=== PATIENT | male | born 1975 | race Caucasian/White ===

== ENCOUNTER 2021-06-10 15:14 | Inpatient (IN) | payer MEDICAID, OTHER ==
[~2021-06-10] VITALS: Ht 172.7 cm; Wt 110.0 kg
[2021-06-10] MEDS ORDERED: FUROSEMIDE 40 MG/4 ML VIAL IV ONE (15:45)
[2021-06-10 16:27] LABS: Basophils # (auto) 0.1 10 ^3/uL (0-0.2); Basophils % (auto) 1.1 % (0.0-2.0); Eosinophils # (auto) 0.1 10 ^3/uL (0-0.8); Eosinophils % (auto) 1.2 % (0.0-7.0); Hematocrit 48.7 % (41.0-53.0); Hemoglobin 16.4 g/dL (13.5-17.5); Lymphocytes # (auto) 1.6 10 ^3/uL (0.4-5.4); Lymphocytes % (auto) 12.9 % (10.0-50.0); Mean Corpuscular Hemoglobin 28.9 pg (28.0-32.0); Mean Corpuscular Hgb Conc. 33.8 g/dL (32.0-36.0); Mean Corpuscular Volume 85.5 fL (80.0-100.0); Monocytes # (auto) 0.6 10 ^3/uL (0-1.3); Monocytes % (auto) 4.6 % (0.0-12.0); Neutrophils # (auto) 9.7 10 ^3/uL (1.6-8.6); Neutrophils % (auto) 80.2 % (37.0-80.0); Nucleated Red Blood Cells % 0.4 %; Red Blood Cells 5.69 10^6/uL (4.5-5.90); Red Cell Distribution Width 13.4 % (11.8-14.3); White Blood Cell 12.1 10^3/uL (4.4-10.8)
[2021-06-10 16:43] LABS: Albumin 3.6 g/dL (3.4-5.0); BUN/Creatinine Ratio 9.1; Calcium 8.8 mg/dL (8.5-10.1); Potassium 3.9 mmol/L (3.5-5.1)
[2021-06-10 16:46] LABS: Total Protein 7.4 g/dL (6.4-8.2)
[2021-06-10] MEDS ORDERED: ACETAMINOPHEN 325 MG TAB PO PRN (21:45)
[2021-06-10] MEDS ORDERED: ONDANSETRON HCL 4 MG/2 ML VIAL IV PRN (21:45)
[2021-06-10] MEDS ORDERED: NITROGLYCERIN 0.4 MG SL TAB SL PRN (21:45)
[2021-06-10] MEDS ORDERED: MORPHINE SULFATE INJECTION 2 MG/ML SYRG IV PRN (21:45)
[2021-06-10] MEDS: METOPROLOL TARTRATE 25 MG TAB PO SCH (22:00)
[2021-06-10] MEDS: ALBUTEROL SULF 2.5 MG/0.5ML(0.5%) NEB SOLN NEB PRN (22:11)
[2021-06-10 22:32] LABS: Urine Bacteria FEW /hpf (None Seen); Urine Blood Negative /uL (Negative); Urine Mucus FEW (None Seen); Urine Specific Gravity 1.012 (1.001-1.035); Urine WBC <1 /hpf (0 - 3)
[2021-06-10] MEDS: ATORVASTATIN 20 MG TAB PO SCH (22:39)
[2021-06-10 22:40] LABS: Alcohol, Urine < 3.0 mg/dL (0-10); Amphetamine Screen, Urine NEGATIVE (NEGATIVE); Barbiturate Scree,Urine NEGATIVE (NEGATIVE); Benzodiazephine Screen, Urine NEGATIVE (NEGATIVE); Cannabinoid Screen, Urine NEGATIVE (NEGATIVE); Cocaine Screen, Urine NEGATIVE (NEGATIVE); Opiate Scree,Urine NEGATIVE (NEGATIVE); Phencyclidine Screen, Urine NEGATIVE (NEGATIVE)
[2021-06-10 23:05] VITALS: BP 133/68
[2021-06-11] VITALS (7 sets, daily range): BP systolic 123–153; BP diastolic 84–113
[2021-06-11 04:55] LABS: Basophils # (auto) 0.1 10 ^3/uL (0-0.2); Basophils % (auto) 0.8 % (0.0-2.0); Eosinophils # (auto) 0 10 ^3/uL (0-0.8); Eosinophils % (auto) 0.2 % (0.0-7.0); Hematocrit 45.1 % (41.0-53.0); Hemoglobin 15.2 g/dL (13.5-17.5); Lymphocytes # (auto) 1.4 10 ^3/uL (0.4-5.4); Lymphocytes % (auto) 8.9 % (10.0-50.0); Mean Corpuscular Hemoglobin 29.1 pg (28.0-32.0); Mean Corpuscular Hgb Conc. 33.8 g/dL (32.0-36.0); Mean Corpuscular Volume 86.2 fL (80.0-100.0); Monocytes # (auto) 1.1 10 ^3/uL (0-1.3); Monocytes % (auto) 7.3 % (0.0-12.0); Neutrophils % (auto) 82.8 % (37.0-80.0); Nucleated Red Blood Cells % 0.1 %; Red Blood Cells 5.24 10^6/uL (4.5-5.90); Red Cell Distribution Width 13.4 % (11.8-14.3); White Blood Cell 15.7 10^3/uL (4.4-10.8)
[2021-06-11] MEDS ORDERED: FUROSEMIDE 20 MG/2 ML VIAL IV SCH (06:00)
[2021-06-11] MEDS: ALBUTEROL SULF 2.5 MG/0.5ML(0.5%) NEB SOLN NEB PRN ×2 (08:41→18:33)
[2021-06-11] MEDS: PANTOPRAZOLE 40 MG TAB PO SCH (09:42)
[2021-06-11] MEDS: METOPROLOL TARTRATE 25 MG TAB PO SCH ×2 (09:42→22:59)
[2021-06-11] MEDS: ENOXAPARIN SOD 40 MG/0.4 ML SYRINGE SC SCH (09:42)
[2021-06-11] MEDS: ASPirin 81 mg TAB PO SCH (09:42)
[2021-06-11] MEDS ORDERED: FUROSEMIDE 40 MG/4 ML VIAL IV ONE (12:45)
[2021-06-11] MEDS ORDERED: ACETAMINOPHEN 325 MG TAB PO PRN (12:45)
[2021-06-11] MEDS: FUROSEMIDE 40 MG/4 ML VIAL IV SCH (18:24)
[2021-06-11] MEDS: ATORVASTATIN 20 MG TAB PO SCH (22:59)
[2021-06-12 05:00] VITALS: BP 134/92
[2021-06-12] MEDS: FUROSEMIDE 40 MG/4 ML VIAL IV SCH ×2 (07:21→18:22)
[2021-06-12 08:07] LABS: Basophils # (auto) 0.1 10 ^3/uL (0-0.2); Basophils % (auto) 1.2 % (0.0-2.0); Eosinophils # (auto) 0.2 10 ^3/uL (0-0.8); Hematocrit 45.9 % (41.0-53.0); Hemoglobin 15.7 g/dL (13.5-17.5); Lymphocytes % (auto) 17.1 % (10.0-50.0); Mean Corpuscular Hemoglobin 29.5 pg (28.0-32.0); Mean Corpuscular Hgb Conc. 34.3 g/dL (32.0-36.0); Mean Corpuscular Volume 86.2 fL (80.0-100.0); Monocytes # (auto) 0.8 10 ^3/uL (0-1.3); Monocytes % (auto) 7.2 % (0.0-12.0); Neutrophils # (auto) 8.5 10 ^3/uL (1.6-8.6); Neutrophils % (auto) 72.5 % (37.0-80.0); Red Blood Cells 5.33 10^6/uL (4.5-5.90); Red Cell Distribution Width 13.7 % (11.8-14.3); White Blood Cell 11.7 10^3/uL (4.4-10.8)
[2021-06-12 08:42] VITALS: BP 164/90
[2021-06-12] MEDS: levoFLOXacin 500MG 100 ML IV SCH (09:15)
[2021-06-12] MEDS: ENOXAPARIN SOD 40 MG/0.4 ML SYRINGE SC SCH (09:16)
[2021-06-12] MEDS: PANTOPRAZOLE 40 MG TAB PO SCH (09:17)
[2021-06-12] MEDS: METOPROLOL TARTRATE 25 MG TAB PO SCH ×2 (09:17→21:43)
[2021-06-12] MEDS: ASPirin 81 mg TAB PO SCH (09:17)
[2021-06-12] MEDS ORDERED: cloNIDine HCL 0.1 MG TAB PO PRN (11:30)
[2021-06-12 12:19] LABS: Alanine Aminotransferase 84 U/L (16-61); Alkaline Phosphatase 73 U/L (45-117); Anion Gap 7 (5-15); Aspartate Aminotransferase 37 U/L (15-37); BUN/Creatinine Ratio 13.3; Bilirubin, Total 1.9 mg/dL (0.2-1.0); Blood Urea Nitrogen 18 mg/dL (7-18); Calcium 8.8 mg/dL (8.5-10.1); Carbon Dioxide 32 mmol/L (21-32); Chloride 98 mmol/L (98-107); GFR African American 74 mL/min; GFR Non-African American 61 mL/min; Glucose 153 mg/dL (74-106); Potassium 3.7 mmol/L (3.5-5.1); Sodium 137 mmol/L (136-145)
[2021-06-12 12:20] LABS: Albumin 3.4 g/dL (3.4-5.0); Total Protein 7.5 g/dL (6.4-8.2)
[2021-06-12 12:32] VITALS: BP 125/85
[2021-06-12 16:49] VITALS: BP 118/79
[2021-06-12] MEDS: ATORVASTATIN 20 MG TAB PO SCH (21:43)
[2021-06-12 22:00] VITALS: BP 140/94
[2021-06-13] MEDS: HYDROcodone-ACET 5/325MG TAB PO PRN (04:29)
[2021-06-13 05:00] VITALS: BP 125/84
[2021-06-13] MEDS: FUROSEMIDE 40 MG/4 ML VIAL IV SCH ×2 (05:17→17:59)
[2021-06-13 09:00] VITALS: BP 138/96
[2021-06-13] MEDS: levoFLOXacin 500MG 100 ML IV SCH (09:50)
[2021-06-13] MEDS: METOPROLOL TARTRATE 25 MG TAB PO SCH ×2 (09:50→21:13)
[2021-06-13] MEDS: ASPirin 81 mg TAB PO SCH (09:50)
[2021-06-13] MEDS: PANTOPRAZOLE 40 MG TAB PO SCH (09:51)
[2021-06-13] MEDS: ENOXAPARIN SOD 40 MG/0.4 ML SYRINGE SC SCH (09:51)
[2021-06-13 13:00] VITALS: BP 141/89
[2021-06-13 17:00] VITALS: BP 138/75
[2021-06-13 18:48] VITALS: BP 143/99
[2021-06-13] MEDS: ATORVASTATIN 20 MG TAB PO SCH (21:13)
[2021-06-13 22:00] VITALS: BP 130/90
[2021-06-14] VITALS (7 sets, daily range): BP systolic 107–134; BP diastolic 64–94
[2021-06-14] MEDS: FUROSEMIDE 40 MG/4 ML VIAL IV SCH ×2 (05:47→17:44)
[2021-06-14] MEDS: ASPirin 81 mg TAB PO SCH (09:52)
[2021-06-14] MEDS: PANTOPRAZOLE 40 MG TAB PO SCH (09:52)
[2021-06-14] MEDS: ENOXAPARIN SOD 40 MG/0.4 ML SYRINGE SC SCH (09:53)
[2021-06-14] MEDS: levoFLOXacin 500MG 100 ML IV SCH (09:53)
[2021-06-14] MEDS: METOPROLOL TARTRATE 25 MG TAB PO SCH ×2 (09:54→21:56)
[2021-06-14] MEDS: HYDROcodone-ACET 5/325MG TAB PO PRN (10:06)
[2021-06-14 11:22] LABS: Cholesterol 159 mg/dL (< 200)
[2021-06-14 11:26] LABS: HDL Cholesterol 34 mg/dL (40-59); LDL Cholesterol 116 mg/dL (< 100); Triglycerides 150 mg/dL (< 150)
[2021-06-14] MEDS ORDERED: REGADENOSON 0.4 MG/5 ML SYRG IV ONE ×2 (14:11→15:15)
[2021-06-14] MEDS: ATORVASTATIN 20 MG TAB PO SCH (21:57)
[2021-06-15 05:00] VITALS: BP 111/62
[2021-06-15] MEDS: FUROSEMIDE 40 MG/4 ML VIAL IV SCH ×2 (06:17→18:01)
[2021-06-15 08:00] VITALS: BP 101/62
[2021-06-15] MEDS: levoFLOXacin 500MG 100 ML IV SCH (10:11)
[2021-06-15] MEDS: METOPROLOL TARTRATE 25 MG TAB PO SCH ×2 (10:12→21:22)
[2021-06-15] MEDS: ENOXAPARIN SOD 40 MG/0.4 ML SYRINGE SC SCH (10:12)
[2021-06-15] MEDS: ASPirin 81 mg TAB PO SCH (10:12)
[2021-06-15 12:00] VITALS: BP 119/81
[2021-06-15 17:00] VITALS: BP 117/93
[2021-06-15] MEDS: ATORVASTATIN 20 MG TAB PO SCH (21:21)
[2021-06-15] MEDS: TEMAZEPAM 15 MG CAP PO PRN (21:22)
[2021-06-15 22:26] VITALS: BP 134/93
[2021-06-16] VITALS (9 sets, daily range): BP systolic 129–159; BP diastolic 73–111
[2021-06-16 04:37] LABS: Basophils # (auto) 0.1 10 ^3/uL (0-0.2); Basophils % (auto) 0.7 % (0.0-2.0); Eosinophils # (auto) 0.2 10 ^3/uL (0-0.8); Eosinophils % (auto) 1.7 % (0.0-7.0); Hematocrit 47.6 % (41.0-53.0); Hemoglobin 16.5 g/dL (13.5-17.5); Lymphocytes # (auto) 2.5 10 ^3/uL (0.4-5.4); Lymphocytes % (auto) 23.7 % (10.0-50.0); Mean Corpuscular Hemoglobin 29.7 pg (28.0-32.0); Mean Corpuscular Hgb Conc. 34.5 g/dL (32.0-36.0); Mean Corpuscular Volume 86.1 fL (80.0-100.0); Monocytes # (auto) 1.1 10 ^3/uL (0-1.3); Monocytes % (auto) 10.3 % (0.0-12.0); Neutrophils # (auto) 6.8 10 ^3/uL (1.6-8.6); Neutrophils % (auto) 63.6 % (37.0-80.0); Nucleated Red Blood Cells % 0.4 %; Red Blood Cells 5.53 10^6/uL (4.5-5.90); Red Cell Distribution Width 13.2 % (11.8-14.3); White Blood Cell 10.7 10^3/uL (4.4-10.8)
[2021-06-16 04:52] LABS: BUN/Creatinine Ratio 14.8; Calcium 8.8 mg/dL (8.5-10.1); Potassium 3.7 mmol/L (3.5-5.1)
[2021-06-16 04:57] LABS: INR 1.05 (0.9-1.15); Partial Thromboplastin Time 28.6 sec (23.6-33.0)
[2021-06-16] MEDS: FUROSEMIDE 40 MG/4 ML VIAL IV SCH ×2 (06:32→17:23)
[2021-06-16] MEDS: ASPirin 81 mg TAB PO SCH (09:37)
[2021-06-16] MEDS: METOPROLOL TARTRATE 25 MG TAB PO SCH ×2 (09:37→22:45)
[2021-06-16] MEDS: ENOXAPARIN SOD 40 MG/0.4 ML SYRINGE SC SCH (09:37)
[2021-06-16] MEDS: levoFLOXacin 500MG 100 ML IV SCH (09:38)
[2021-06-16] MEDS ORDERED: IODIXANOL 320MG/ML 100ML BTL IV ONE ×2 (11:55→13:17)
[2021-06-16] MEDS ORDERED: LIDOCAINE 2%HCL (LOCAL ANESTH.) INJ 20ML MDV ONE (11:55)
[2021-06-16] MEDS ORDERED: MIDAZOLAM HCL 2MG/2ML 2ml VIAL (1mg/ml) ONE (13:13)
[2021-06-16] MEDS ORDERED: HEPARIN SODIUM (PORCINE) 5000 UNITS/ML 1ML VIAL ONE (13:13)
[2021-06-16] MEDS ORDERED: VERAPAMIL 2.5MG/ML INJ 2ML VIAL IV ONE (13:13)
[2021-06-16] MEDS ORDERED: fentaNYL CITRATE 100 MCG/2 ML VL ONE (13:13)
[2021-06-16] MEDS ORDERED: ANGIOMAX 250 MG VIAL IV ONE (13:13)
[2021-06-16] MEDS ORDERED: SODIUM CHL 0.9% 0 ML ONE (13:14)
[2021-06-16] MEDS: HYDROcodone-ACET 5/325MG TAB PO PRN ×2 (17:23→22:52)
[2021-06-16] MEDS ORDERED: LORazepam 2MG/ML-1ML VIAL IV PRN (22:00)
[2021-06-16] MEDS: TEMAZEPAM 15 MG CAP PO PRN (22:45)
[2021-06-16] MEDS: ATORVASTATIN 20 MG TAB PO SCH (22:45)
[2021-06-17 05:00] VITALS: BP 114/87
[2021-06-17] MEDS: FUROSEMIDE 40 MG/4 ML VIAL IV SCH ×2 (05:20→17:37)
[2021-06-17] MEDS: HYDROcodone-ACET 5/325MG TAB PO PRN (08:37)
[2021-06-17] MEDS: ASPirin 81 mg TAB PO SCH (08:52)
[2021-06-17] MEDS: levoFLOXacin 500MG 100 ML IV SCH (08:52)
[2021-06-17] MEDS: ENOXAPARIN SOD 40 MG/0.4 ML SYRINGE SC SCH (08:53)
[2021-06-17 09:00] VITALS: BP 152/106
[2021-06-17] MEDS: METOPROLOL TARTRATE 25 MG TAB PO SCH ×2 (10:00→22:17)
[2021-06-17 13:00] VITALS: BP 123/82
[2021-06-17 17:00] VITALS: BP 131/83
[2021-06-17] MEDS: ATORVASTATIN 20 MG TAB PO SCH ×2 (21:30→22:16)
[2021-06-17 21:58] VITALS: BP 103/81
[2021-06-18 05:00] VITALS: BP 118/68
[2021-06-18] MEDS: FUROSEMIDE 40 MG/4 ML VIAL IV SCH ×2 (05:43→17:20)
[2021-06-18] MEDS: ASPirin 81 mg TAB PO SCH (08:32)
[2021-06-18] MEDS: levoFLOXacin 500MG 100 ML IV SCH (08:32)
[2021-06-18] MEDS: ENOXAPARIN SOD 40 MG/0.4 ML SYRINGE SC SCH (08:32)
[2021-06-18] MEDS: METOPROLOL TARTRATE 25 MG TAB PO SCH ×2 (08:35→21:27)
[2021-06-18 08:53] VITALS: BP 144/95
[2021-06-18] MEDS ORDERED: FURO1TAB31 PO (09:11)
[2021-06-18] MEDS ORDERED: METO25TA5 PO (09:11)
[2021-06-18] MEDS ORDERED: CLOP75TA28 PO (09:11)
[2021-06-18] MEDS ORDERED: POTA10TA51 PO (09:11)
[2021-06-18] MEDS ORDERED: ASPI81CH49 PO (09:11)
[2021-06-18] MEDS ORDERED: ATO40T PO (09:11)
[2021-06-18 10:05] VITALS: BP 144/95
[2021-06-18 13:00] VITALS: BP 149/102
[2021-06-18 16:53] VITALS: BP 135/88
[2021-06-18] MEDS: ATORVASTATIN 20 MG TAB PO SCH (21:26)
[2021-06-18 23:15] VITALS: BP 130/88
[2021-06-19 05:37] VITALS: BP 120/83
[2021-06-19] MEDS: FUROSEMIDE 40 MG/4 ML VIAL IV SCH ×2 (05:54→17:37)
[2021-06-19 09:00] VITALS: BP 137/92
[2021-06-19] MEDS: ASPirin 81 mg TAB PO SCH (09:37)
[2021-06-19] MEDS: METOPROLOL TARTRATE 25 MG TAB PO SCH ×2 (09:38→21:28)
[2021-06-19] MEDS: ENOXAPARIN SOD 40 MG/0.4 ML SYRINGE SC SCH (09:38)
[2021-06-19] MEDS: levoFLOXacin 500MG 100 ML IV SCH (09:38)
[2021-06-19 13:00] VITALS: BP 125/84
[2021-06-19 16:59] VITALS: BP 128/88
[2021-06-19] MEDS: ATORVASTATIN 20 MG TAB PO SCH (21:28)
[2021-06-19 22:00] VITALS: BP 117/72
[2021-06-20 00:37] VITALS: BP 117/72
[2021-06-20 05:00] VITALS: BP 110/81
[2021-06-20] MEDS: FUROSEMIDE 40 MG/4 ML VIAL IV SCH ×2 (07:00→18:24)
[2021-06-20] MEDS: HYDROcodone-ACET 5/325MG TAB PO PRN (08:02)
[2021-06-20 09:00] VITALS: BP 139/95
[2021-06-20] MEDS: levoFLOXacin 500MG 100 ML IV SCH (09:10)
[2021-06-20] MEDS: METOPROLOL TARTRATE 25 MG TAB PO SCH ×2 (09:10→22:22)
[2021-06-20] MEDS: ASPirin 81 mg TAB PO SCH ×2 (09:10→14:00)
[2021-06-20] MEDS: ENOXAPARIN SOD 40 MG/0.4 ML SYRINGE SC SCH (09:11)
[2021-06-20 13:00] VITALS: BP 121/85
[2021-06-20 17:00] VITALS: BP 136/99
[2021-06-20 22:00] VITALS: BP 135/88
[2021-06-20] MEDS: ATORVASTATIN 20 MG TAB PO SCH (22:21)
[2021-06-21 05:00] VITALS: BP 131/96
[2021-06-21] MEDS: FUROSEMIDE 40 MG/4 ML VIAL IV SCH (06:04)
[2021-06-21 09:00] VITALS: BP 134/91
[2021-06-21] MEDS ORDERED: CLOPIDOGREL BISULFATE 75 MG TAB PO SCH (10:00)
[2021-06-21] MEDS: levoFLOXacin 500MG 100 ML IV SCH (11:04)
[2021-06-21] MEDS: ASPirin 81 mg TAB PO SCH (11:05)
[2021-06-21] MEDS: METOPROLOL TARTRATE 25 MG TAB PO SCH (11:10)
[2021-06-21] MEDS: ENOXAPARIN SOD 40 MG/0.4 ML SYRINGE SC SCH (11:11)
[2021-06-21 13:00] VITALS: BP 151/109
== END 2021-06-21 15:00 | disposition home or self-care (01) | DRG 190 ==
LOC: EDBD 15:14 → ER 15:14 → TELE 21:40 → TELE-CENTR 23:56
PROVIDERS: ADMIT Nurse Practitioner; ATTEND Family Medicine
PROC: 5A09457 Assistance with Respiratory Ventilation, 24-96 Consecutive Hours, Continuous Positive Airway Pressure (ICD-10-PCS; 2021-06-12)
PROC: 4A023N7 Measurement of Cardiac Sampling and Pressure, Left Heart, Percutaneous Approach (ICD-10-PCS; principal; 2021-06-16)
PROC: B211YZZ Fluoroscopy of Multiple Coronary Arteries using Other Contrast (ICD-10-PCS; 2021-06-16)
PROC: B215YZZ Fluoroscopy of Left Heart using Other Contrast (ICD-10-PCS; 2021-06-16)
PROC: 5A09457 Assistance with Respiratory Ventilation, 24-96 Consecutive Hours, Continuous Positive Airway Pressure (ICD-10-PCS; 2021-06-18)
DX: I21.4 Non-ST elevation (NSTEMI) myocardial infarction (principal); J96.01 Acute respiratory failure with hypoxia; I50.33 Acute on chronic diastolic (congestive) heart failure; I67.83 Posterior reversible encephalopathy syndrome; K76.0 Fatty (change of) liver, not elsewhere classified; E66.01 Morbid (severe) obesity due to excess calories; E78.00 Pure hypercholesterolemia, unspecified; E78.5 Hyperlipidemia, unspecified; G47.10 Hypersomnia, unspecified; I11.0 Hypertensive heart disease with heart failure; I16.1 Hypertensive emergency; Z20.822 Contact with and (suspected) exposure to COVID-19; Z79.02 Long term (current) use of antithrombotics/antiplatelets; Z79.82 Long term (current) use of aspirin; Z79.899 Other long term (current) drug therapy; Z82.3 Family history of stroke; Z68.36 Body mass index [BMI] 36.0-36.9, adult; Z83.3 Family history of diabetes mellitus; Z90.49 Acquired absence of other specified parts of digestive tract; Z82.49 Family history of ischemic heart disease and other diseases of the circulatory system; Z88.0 Allergy status to penicillin
CPT/HCPCS: 36415; 36600; 70450; 70551; 71045; 74176; 78452; 80048; 80053; 80061; 80307; 81001; 82805; 83036; 83735; 83880; 84443; 84484; 85025; 85379; 85610; 85730; 86850; 86900; 86901; 93005; 93017; 93306; 93886; 94640; 94660; 94762; 96374; 97163; 99152; 99291; G0378; J1956; J2250; Q9967

== ENCOUNTER → 2022-03-10 | Outpatient (CLI) | payer MEDICAID ==
[~2022-03-10] MED LIST: ASPI81CH49 PO; ATO40T PO; CLOP75TA28 PO; FURO1TAB31 PO; METO25TA5 PO; POTA10TA51 PO
== END | disposition home or self-care (01) ==
LOC: LAB 09:38
PROVIDERS: ATTEND Internal Medicine Pulmonary Disease
DX: Z01.812 Encounter for preprocedural laboratory examination (principal); Z20.822 Contact with and (suspected) exposure to COVID-19
CPT/HCPCS: 36415; 87426

== ENCOUNTER → 2022-03-11 | Outpatient (CLI) | payer MEDICAID ==
[~2022-03-11] MED LIST changes: +ALBUTEROL MEDNEB 2.5 mg/3ml NEB ONE
== END | disposition home or self-care (01) ==
LOC: RT 08:40
PROVIDERS: ATTEND Internal Medicine Pulmonary Disease
DX: R06.02 Shortness of breath (principal); R06.00 Dyspnea, unspecified
CPT/HCPCS: 94060; 94727; 94729

== ENCOUNTER → 2023-07-11 | Outpatient (CLI) | payer MEDICAID ==
[~2023-07-11] MED LIST changes: -ALBUTEROL MEDNEB 2.5 mg/3ml NEB ONE; -ATO40T PO; +ATOR-507 PO; +POTA-36 PO; -POTA10TA51 PO
== END | disposition home or self-care (01) ==
LOC: XYW 14:26
PROVIDERS: ATTEND Student in an Organized Health Care Education/Training Program
DX: R93.1 Abnormal findings on diagnostic imaging of heart and coronary circulation (principal); I51.89 Other ill-defined heart diseases
CPT/HCPCS: 93306